=== PATIENT | female | born 1970 | race Caucasian/White ===

== ENCOUNTER 2021-05-30 13:44 | Emergency (ER) | payer OTHER ==
[~2021-05-30] VITALS: Ht 167 cm; Wt 92.6 kg
--- NOTE | 2021-05-30 14:11 | ED Integumentary General ---
General Chief Complaint: Laceration Stated Complaint: LEFT LOWER ADB INJ Nursing Triage Note: PT FELL ONTO A TWIG AND IT PUNCTURED THE RIGHT SIDE OF HER ABDOMEN. BLEEDING CONTROLLED. History of Present Illness Date Seen by Provider: May 30, 2021 Time Seen by Provider: 14:00 Initial Comments 51-year-old female presents after falling off a ladder and into a joseph and getting a steak stuck in her lower abdomen. States she went to take a shower and tried to pull it out and the stick broke off. She still feels a large piece stuck in her lower abdomen. No significant bleeding. Allergies and Home Medications Home Medications Clindamycin HCl 300 Mg Capsule, 300 MG PO TIDWM Prescribed by: FARZANA LOPEZ on 05/30/211512 Oxycodone HCl 5 Mg Capsule, 5 MG PO BID PRN Prescribed by: FARZANA LOPEZ on 05/30/211512 Patient Home Medication List Home Medication List Reviewed: Yes Review of Systems Review of Systems Constitutional: No fever, No malaise, No weakness Respiratory: No cough, No short of breath Cardiovascular: No chest pain, No palpitations Gastrointestinal: LLQ, abdominal pain; No nausea, No vomiting Musculoskeletal: No back pain, No joint pain Skin: see HPI Past Wfrddwx-Mgiwah-Lpqygd Hx Patient Social History Tobacco Use?: No Use of E-Cig and/or Vaping dev: No Substance use?: No Alcohol Use?: No Pt feels they are or have been: No Physical Exam Vital Signs Vital Signs - First Documented 05/30/21 13:50 Temp 36.5 Pulse 120 Resp 20 B/P (MAP) 184/97 (126) Pulse Ox 98 O2 Delivery Room Air Capillary Refill : Less Than 3 Seconds General Appearance: WD/WN, no apparent distress Cardiovascular: regular rate, rhythm, no edema Respiratory: chest non-tender, lungs clear Gastrointestinal: soft, tenderness (@ sight of penetration w palpable small FB, immediately adjacent to wound. Do not feel "deeper" FB, that patient states she feels.) Progress/Results/Core Measures Results/Orders My Orders Orders - FARZANA LOPEZ DO Abdomen (Kub) 1 View (05/30/21 14:06) Ct Abdomen/Pelvis Wo (05/30/21 14:28) Vital Signs/I&O 05/30/21 05/30/21 13:50 15:17 Temp 36.5 36.5 Pulse 120 120 Resp 20 20 B/P (MAP) 184/97 (126) 184/97 (126) Pulse Ox 98 98 O2 Delivery Room Air Blood Pressure Mean: 126 Progress Progress Note : Progress Note Patient examined with no palpable foreign body in or near her puncture wound, CT scan supportive there was no foreign body, but identifiable tract of the wound with subcutaneous air was easily visualized. Patient was discharged, prescriptions written with plans to follow-up with her PCP in a few days for wound check. Nurse was giving discharge instructions, patient said there was definitely something in her wound (although she was not as insistent with me, just minutes prior). The nurse states that the patient then stood up from the bed, turned her back and lean forward, then after a moment she turned around and said see, feel it. At that time the nurse placed a gloved hand over the puncture wound and felt a blunt subcutaneous object. She attempted to remove the forceps, but was unable. I was called back in the room and advised if they were that suspicious, there will need to be explored. The wound was anesthetized with lidocaine, sterilized with Betadine and the puncture wound was opened from 1 cm to 2 cm to allow blunt probing with hemostats. I was able to grasp the foreign body and remove it, revealing a piece of a snake approximately 3 cm long and 5 to 8 mm in diameter. After it was removed, patient said she thought it was more, I deeply palpated along the lines of the penetration (vis ualized on CT) and did not feel any other objects to palpation. Called radiology to discuss the negative findings on CT and the likelihood of missing an object of the size and he opposed the possibility as that was a rather large stick to be missed by a CT scan that takes 2.5 mm sections. ER- Tech also relates her concern of the alleged stick that the patient brought into the ER with her as it had been dropped in the waiting room while pt was being brought back and the Tech (Yuli) said she clearly recalled the end of the stick had a fork shape w near equal length branches. Stick seen later (after all events) and one of the forks that was now missing from the stick, matched the one removed from her wound. Highly suspicious that patient placed the stick in her wound after given her DC instructions Departure Impression Primary Impression: Puncture wound of abdominal wall Qualified Codes: S31.139A - Puncture wound of abdominal wall without foreign body, unspecified quadrant without penetration into peritoneal cavity, initial encounter Disposition: 01 HOME, SELF-CARE Condition: Stable Departure-Patient Inst. Decision time for Depature: 15:11 Referrals: NO,LOCAL PHYSICIAN (PCP/Family) Primary Care Physician Patient Instructions: Wound Care (DC) Add. Discharge Instructions: Follow up with your PCP in 3 days for wound Re-examination, sooner if any worsening signs such as" increased redness, swelling, discharge or pain All discharge instructions reviewed with patient and/or family. Voiced understanding. Scripts Oxycodone HCl (Oxycodone HCl) 5 Mg Capsule 5 MG PO BID PRN for 3 Days, #6 CAP Prov: FARZANA LOPEZ DO 05/30/21 Clindamycin HCl (Clindamycin HCl) 300 Mg Capsule 300 MG PO TIDWM, #21 CAP Prov: FARZANA LOPEZ DO 05/30/21 FARZANA LOPEZ DO May 30, 2021 14:11
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
--- OUTSIDE RECORDS SUMMARY | 2021-05-30 14:17 | XMS REPORT | Clinical Summary ---
Author Author [facility] Organization [facility] Address Unknown Phone Unavailable Care Team Providers Care Knitted Goods Shaper Name Role Phone PCP Unavailable Allergies Not on File Medications Not on file Active Problems Problem Noted Date Foot pain 02/21/2010 Allergic rhinitis 02/10/2010 Overview: Formatting of this note might be differ ent from the original. ICD-10 conversion Insomnia 01/06/2010 Overview: Formatting of this note might be differ ent from the original. ICD-10 conversion Joint pain, knee 01/06/2010 Neck pain 01/06/2010 Incisional hernia 11/02/2009 Overview: Formatting of this note might be differ ent from the original. ICD-10 conversion Malaise and fatigue 10/28/2009 Overview: Formatting of this note might be differ ent from the original. IMO Update Nausea with vomiting 04/07/2008 Muscle Cramps 04/07/2008 Chronic Pain Syndrome 04/07/2008 Migraine with aura 04/07/2008 Overview: Formatting of this note might be differ ent from the original. ICD-10 conversion (Lower) Leg Localized Swelling Bilateral 04/07/2008 Esophageal Reflux 04/07/2008 Recurrent major depression 04/07/2008 Overview: Formatting of this note might be differ ent from the original. IMO Update Neutropenia 04/07/2008 Overview: Formatting of this note might be differ ent from the original. ICD-10 conversion Exploratory Laparotomy 04/07/2008 Overview: Formatting of this note might be differ ent from the original. Problem: Exploratory Laparotomy Phlebitis and thrombophlebitis of other sites 2007 Overview: Formatting of this note might be differ ent from the original. 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 ICD-10 conversion Postsurgical Status Of Intestinal Bypass 04/07/2008 Overview: Formatting of this note might be differ ent from the original. Problem: POSTSURGICAL STATUS INTESTINAL BYPASS Pruritic disorder 04/07/2008 Overview: Formatting of this note might be differ ent from the original. ICD-10 conversion Anxiety state 04/07/2008 Overview: Formatting of this note might be differ ent from the original. ICD-10 conversion Chronic Diarrhea Of Unknown Origin 04/07/2008 Family History Medical History Relation Name Comments Cervical cancer Other Family History; Cer vical Cancer; Coronary artery disease Other Family History ; Coronary Artery Disease; Diabetes Other Family History; Preethi betes Mellitus Poorly Controlled; Hyperlipidemia Other Family History; Hyp erlipidemia; Hypertension Other Family History; Ess ential Hypertension; Stroke Other Family History; Str jewel Syndrome; Relation Name Status Comments Other Social History Date Tobacco Use Types Packs/Day Years Used Never Assessed Sex Assigned at Date Recorded Not on file Last Filed Vital Signs Reading Time Taken Comments Vital Sign 120/80 02/21/2010 11:23 AM CDT Blood Pressure 70 02/21/2010 11:23 AM CDT Pulse 36.7 C (98.1 F) 01/06/2010 10:19 AM CDT Temperature 24 11/02/2009 11:22 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 Respiratory Rate - - Oxygen Saturation - - Inhaled Oxygen Concentration 107 kg (236 lb) 02/21/2010 11:23 AM CDT Weight 165.1 cm (5' 5") 02/21/2010 11:23 AM CDT Height 39.27 02/21/2010 11:23 AM CDT Body Mass Index Plan of Treatment Health Maintenance Due Date Last Done Comments Td/Tdap# 1970 Cervical Cancer Screening 02/24/1993 via Pap Smear Influenza Vaccine (#1) 2021 Pneumococcal Vaccine: Aged Out No longer eligib maura based on patient's age to Pediatrics (0 to 5 Years) complete this topic and At-Risk Patients (6 to 64 Years) Results Not on filefrom Last 3 Months Insurance Type Payer Benefit Subscriber ID Effective Phone Address Plan / Dates Group MEDICARE REPLACEMENT PLAN [facility] [id number] 2018-P MEDICARE resent COMPLETE [place]AR MEDICAID ([place]) [place] [id number] 2019 [employer] -Present Ivan Mccann Personal/F Self [address] [place] (Home) [address] [place] [id number]
--- NOTE | 2021-05-30 14:29 | Diagnostic Imaging Report ---
INDICATION: Left lower quadrant abdominal pain, puncture wound COMPARISON: None. FINDINGS: Single AP and lateral view of the abdomen demonstrates mild constipation. There is no obstruction or large pocket of free air. IVC filter is present. There is no unexpected radiopaque foreign body. Osseous structures are normal IMPRESSION: Constipation without bowel obstruction, free air or unexpected foreign body. Dictated by: Dictated on workstation # [id number]
--- NOTE | 2021-05-30 15:00 | Diagnostic Imaging Report ---
PROCEDURE: CT abdomen and pelvis without contrast. TECHNIQUE: Multiple contiguous axial images were obtained through the abdomen and pelvis without the use of intravenous contrast. Auto Exposure Controls were utilized during the CT exam to meet ALARA standards for radiation dose reduction. INDICATION: Left lower quadrant abdominal pain. Patient reports she fell on a stick. The study is performed to evaluate for foreign body. COMPARISON: No prior studies are available for comparison. FINDINGS: Lung bases are clear. The liver is unremarkable. The gallbladder is surgically absent. There is no biliary ductal dilatation. The pancreas and spleen are unremarkable. There are postop changes from gastric bypass surgery. No adrenal mass is identified. Right kidney is unremarkable. Left kidney contains a nonobstructing calculus, approximately 5 mm in size. Aorta is nonaneurysmal. There is a filter within the inferior vena cava. There is an air tract identified in the subcutaneous tissues of the left lower quadrant from patient's recent penetrating injury. There is inflammation in the tissues, but no definite radiopaque foreign object is identified. The penetrating injury did not appear to extend intraperitoneal. No fluid collection or hematoma is identified. Bowel loops are normal in caliber. There is no obstruction. No free fluid or fluid collection is seen. Bladder and uterus are unremarkable. IMPRESSION: 1. There is an air tract in the subcutaneous fat of the left lower quadrant from recent penetrating injury. There is some surrounding inflammatory stranding in the subcutaneous fat as well. No definite radiopaque foreign object is identified. There is no evidence of intraperitoneal extension. 2. Nonobstructing left renal calculus. Dictated by: Dictated on workstation # [id number]
[2021-05-30] MEDS ORDERED: OXYC5CAP18 PO (15:13)
[2021-05-30] MEDS ORDERED: CLIN300C12 PO (15:13)
[2021-05-30 15:17] VITALS: BP 184/97
== END 2021-05-30 15:18 | disposition home or self-care (01) ==
LOC: ER FS 13:46
DX: S31.144A Puncture wound of abdominal wall with foreign body, left lower quadrant without penetration into peritoneal cavity, initial encounter (principal); W11.XXXA Fall on and from ladder, initial encounter
CPT/HCPCS: 74018; 74176

== ENCOUNTER 2022-08-04 20:20 | Day surgery (SDC) | payer OTHER ==
[~2022-08-04] VITALS: Ht 167 cm; Wt 87.4 kg
[~2022-08-04 20:20] MED LIST: CLIN-144 PO; OXYC5CAP18 PO
--- NOTE | 2022-08-04 20:25 | ED Fall/Injury ---
General Stated Complaint: ABD WOUND History of Present Illness Date Seen by Provider: Aug 04, 2022 Time Seen by Provider: 20:25 Initial Comments 52-year-old female with PMH of recurrent PE ( 7 times) is on Eliquis/ multiple past abdominal surgeries, is here with c/o impaled fishing fernie into her abdomen, after she fell 6 feet off the ladder and landed on the patient. The fishing fernie extends into the LUQ of the abdomen. Pt is in pain but walked into the ER. Denies LOC, nausea, vomiting. Pt is on Eliquis. Pt stated she tried to pull the fernie out at home and was only able to pull out 4 inches of the fernie which broke off. No active external bleeding. Vitals stable in ER, Allergies and Home Medications Allergies Coded Allergies: acetaminophen (Verified Allergy, Unknown, 08/04/22) codeine (Verified Allergy, Unknown, 08/04/22) egg (Verified Allergy, Unknown, 08/04/22) levofloxacin (Verified Allergy, Unknown, 08/04/22) prochlorperazine (Verified Allergy, Unknown, 08/04/22) tramadol (Verified Allergy, Unknown, 08/04/22) Patient Home Medication List Home Medication List Reviewed: Yes Clindamycin HCl (Clindamycin HCl) 300 Mg Capsule, 300 MG PO TIDWM Prescribed by: FARZANA LOPEZ on 05/30/21 151 Oxycodone HCl (Oxycodone HCl) 5 Mg Capsule, 5 MG PO BID PRN Prescribed by: FARZANA LOPEZ on 05/30/21 151 Review of Systems Review of Systems Constitutional: no symptoms reported Eyes: No Symptoms Reported Ears, Nose, Mouth, Throat: no symptoms reported Respiratory: no symptoms reported Cardiovascular: no symptoms reported Gastrointestinal: abdominal pain Genitourinary: no symptoms reported Musculoskeletal: no symptoms reported Skin: no symptoms reported Psychiatric/Neurological: No Symptoms Reported Physical Exam Vital Signs Vital Signs - First Documented Capillary Refill : Height, Weight, BMI Height: '" Weight: lbs. oz. kg; 33.00 BMI Method: General Appearance: moderate distress HEENT: PERRL/EOMI, other (laceration scalp) Neck: normal inspection, tender midline Cardiovascular: normal peripheral pulses, regular rate, rhythm Respiratory: lungs clear, no respiratory distress Gastrointestinal: normal bowel sounds, tenderness (left sided impaled fishing fernie which is estimated to be about 7 inches long is directed toward LUQ, and embedded. No external bleeding. 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, no motor/sensory deficits, alert, oriented x 3 Skin: normal color Lymphatic: no adenopathy Progress/Results/Core Measures Results/Orders Lab Results Laboratory Tests Test 08/04/22 20:33 Range/Units White Blood Count 5.4 4.3-11.0 10^3/uL Red Blood Count 4.25 3.80-5.11 10^6/uL Hemoglobin 11.0 L 11.5-16.0 g/dL Hematocrit 36 35-52 % Mean Corpuscular Volume 84 80-99 fL Mean Corpuscular Hemoglobin 26 25-34 pg Mean Corpuscular Hemoglobin Concent 31 L 32-36 g/dL Red Cell Distribution Width 17.4 H 10.0-14.5 % Platelet Count 258 130-400 10^3/uL Mean Platelet Volume 9.9 9.0-12.2 fL Immature Granulocyte % (Auto) 0 % Neutrophils (%) (Auto) 47 42-75 % Lymphocytes (%) (Auto) 41 12-44 % Monocytes (%) (Auto) 8 0-12 % Eosinophils (%) (Auto) 3 0-10 % Basophils (%) (Auto) 1 0-10 % Neutrophils # (Auto) 2.5 1.8-7.8 10^3/uL Lymphocytes # (Auto) 2.2 1.0-4.0 10^3/uL Monocytes # (Auto) 0.5 0.0-1.0 10^3/uL Eosinophils # (Auto) 0.2 0.0-0.3 10^3/uL Basophils # (Auto) 0.0 0.0-0.1 10^3/uL Immature Granulocyte # (Auto) 0.0 0.0-0.1 10^3/uL Prothrombin Time 13.3 12.2-14.7 SEC INR Comment 1.0 0.8-1.4 Activated Partial Thromboplast Time 28 24-35 SEC Sodium Level 138 135-145 MMOL/L Potassium Level 3.7 3.6-5.0 MMOL/L Chloride Level 101 98-107 MMOL/L Carbon Dioxide Level 25 21-32 MMOL/L Anion Gap 12 5-14 MMOL/L Blood Urea Nitrogen 12 7-18 MG/DL Creatinine 0.94 0.60-1.30 MG/DL Estimat Glomerular Filtration Rate 74 BUN/Creatinine Ratio 13 Glucose Level 103 70-105 MG/DL Calcium Level 9.2 8.5-10.1 MG/DL Corrected Calcium 9.0 8.5-10.1 MG/DL Total Bilirubin 0.3 0.1-1.0 MG/DL Aspartate Amino Transf (AST/SGOT) 37 H 5-34 U/L Alanine Aminotransferase (ALT/SGPT) 24 0-55 U/L Alkaline Phosphatase 129 40-136 U/L Total Protein 7.7 6.4-8.2 GM/DL Albumin 4.3 3.2-4.5 GM/DL My Orders Orders - HEATHER JACKSON MD Cbc With Automated Diff (08/04/22 20:29) Comprehensive Metabolic Panel (08/04/22 20:29) Drug Screen Stat (Urine) (08/04/22 20:29) Protime With Inr (08/04/22 20:29) Partial Thromboplastin Time (08/04/22 20:29) Ua Culture If Indicated (08/04/22 20:29) Ct Head/Cervical Spine Wo (08/04/22 20:35) Ct Chest/Abdomen/Pelvis W (08/04/22 20:35) Fentanyl Inj (Sublimaze Injection) (08/04/22 20:45) Ed Iv/Invasive Line Start (08/04/22 20:41) Ns Iv 1000 Ml (Sodium Chloride 0.9%) (08/04/22 20:45) Ceftriaxone 1 Gm Pre-Mix (Rocephin 1 Gm (08/04/22 20:42) Iohexol Injection (Omnipaque 350 Mg/Ml 1 (08/04/22 20:45) Received Contrast (Hold Metformin- Contr (08/04/22 20:45) Sodium Chloride Flush (Catheter Flush Sy (08/04/22 20:45) Ns (Ivpb) (Sodium Chloride 0.9% Ivpb Bag (08/04/22 20:45) Hydromorphone Injection (Dilaudid Inject (08/04/22 21:01) Hydromorphone Injection (Dilaudid Inject (08/04/22 21:02) Medications Given in ED Current Medications Medications Dose Ordered Sig/Rola Route Start Time Stop Time Status Last Admin Dose Admin Fentanyl Citrate 50 mcg ONCE ONCE IVP 08/04/22 20:45 08/04/22 20:46 DC 08/04/22 21:08 50 MCG Iohexol 100 ml ONCE ONCE IV 08/04/22 20:45 08/04/22 20:46 DC 08/04/22 21:20 100 ML Sodium Chloride 100 ml ONCE ONCE IV 08/04/22 20:45 08/04/22 20:46 DC 08/04/22 21:21 100 ML Vital Signs/I&O 08/04/22 08/04/22 08/04/22 21:00 21:00 21:30 Temp 36.7 36.7 36.7 Pulse 106 106 106 Resp 22 B/P (MAP) 131/105 (114) 131/105 (114) 135/87 Pulse Ox 98 99 99 O2 Delivery Room Air Room Air Room Air Progress Progress Note : Progress Note 1. IMPALED FISHING FERNIE IN ABDOMEN: - CT ABD & PELVIS WITH CONTRAST: - CBC/ CMP - Coag panel - Pt is on Eliquis for recurrent PE - Discussed with Dr Dent. WIll send to [place] as soon as imaging completed. - EMS waiting in ER to transport pt as soon as imaging done - Fentanyl 50mcg iv STAT - NS IVF bolus STAT - Ceftriaxone 1gm iv STAT - Emergent transport by EMS. 2. FALL FROM 6 FEET HEIGHT: - CT HEAD & C-SPINE WITHOUT CONTRAST - C-collar applied in ER - Pt is up to date on Tdap in February of this year Diagnostic Imaging Diagonstic Imaging: CT Plain Films/CT/US/NM/MRI: chest, abdomen, c-spine, head Comments [facility], [facility]. [place], [place] NAME: FLOR WANG Vitaly MED REC#: [id number] PT STATUS: REG ER : 1970 PHYSICIAN: HEATHER JACKSON MD ADMIT DATE: 08/04/22/ER FS Draft Date of Exam:08/04/22 CT CHEST/ABDOMEN/PELVIS W PROCEDURE: CT chest, abdomen, and pelvis with contrast. TECHNIQUE: Multiple contiguous axial images were obtained through the chest, abdomen, and pelvis after the administration of intravenous contrast. Auto Exposure Controls were utilized during the CT exam to meet ALARA standards for radiation dose reduction. INDICATION: Fall. Impaled with a fishing fernie. Injury. Pain. COMPARISON: 05/30/2021. FINDINGS: CT CHEST: Cardiomediastinal structures show normal heart size. There is no large pericardial effusion. No pathologically enlarged or morphologically abnormal adenopathy is seen within the mediastinum, geetha or axilla. Lungs are clear. There is no focal consolidation, large effusion or pneumothorax. No suspicious pulmonary nodule or mass is seen. Osseous structures show no acute abnormality. No lytic or blastic bony lesion is seen. CT ABDOMEN: Tubular foreign body is identified extending through the subcutaneous fat of the left upper abdominal quadrant. There is no extension through the abdominal wall into the intraperitoneal cavity. No large fluid collection is seen around the foreign body. Large amount of air and stool is noted within the colon. Colon is also moderately redundant in nature. Normal appendix cannot be adequately identified, but there is no pericecal inflammation. Small bowel loops are nondistended. Postsurgical changes to the stomach are noted. Punctate nonobstructive left renal calculus is seen. Small hypoenhancing spherical foci of the right kidney are noted and may be on the basis of small cysts, but are too small to adequately characterize based on this exam. Otherwise, kidneys, adrenal glands, spleen, pancreas and liver have a normal CT appearance. There is no loculated fluid collection, free fluid or free air within the abdomen. No abnormal mesenteric or retroperitoneal adenopathy is seen. Osseous structures show no acute abnormality. Indwelling IVC filter is noted. CT PELVIS: Urinary bladder is unopacified. No calculus is seen within the urinary bladder. There is no loculated fluid collection, free fluid or free air within the pelvis. No abnormal adenopathy is seen. Osseous structures show no acute abnormality. IMPRESSION: 1. Large tubular foreign body is seen within the anterior subcutaneous fat of the left upper abdominal quadrant. There is no intra-abdominal extension. No large hematoma is seen. 2. Moderate amount of air and stool within the colon. Please correlate for constipation. 3. No acute cardiopulmonary process. 4. Punctate nonobstructive left renal calculus. 5. Other nonemergent findings as detailed above. Dictated on workstation # [id number] Dict: 08/04/222126 Trans: 08/04/222139 PJE [id number] Interpreted by: ROBB EVANS MD Electronically signed by: [facility]ITAL[facility]. [place], [place] NAME: FLOR WANG [facility] REC#: [id number] PT STATUS: REG ER : 1970 PHYSICIAN: HEATHER JACKSON MD ADMIT DATE: 08/04/22/ER FS Draft Date of Exam:08/04/22 CT HEAD/CERVICAL SPINE WO PROCEDURE: CT head and CT cervical spine without contrast. TECHNIQUE: Multiple contiguous axial images were obtained through the brain and cervical spine without the use of intravenous contrast. Sagittal and coronal reformations through the cervical spine were then performed. Auto Exposure Controls were utilized during the CT exam to meet ALARA standards for radiation dose reduction. INDICATION: Fall with trauma to the head. Injury. COMPARISON: None. FINDINGS: CT HEAD: Ventricles and cortical sulci are normal in size and contour. There is no midline shift or mass-effect. No acute intra-axial hemorrhage is seen. There ise no abnormal area of increased or decreased density to suggest acute hemorrhage or edema. No extra-axial mass or collection is present. The bony calvarium is intact. The visualized paranasal sinuses are unremarkable. The mastoid air cells are clear. CT CERVICAL SPINE: Static alignment of the cervical spine is maintained. There is no significant anterolisthesis or retrolisthesis There is no evidence of jumped facets. Vertebral body heights are maintained. There is no acute fracture. No bony fragment is seen within the spinal canal. Prevertebral and paravertebral soft tissue structures are unremarkable. Included portions of the lung apices are clear. IMPRESSION: 1. No acute intracranial abnormality. No CT evidence of mass, acute infarct or intracranial hemorrhage. 2. No acute fracture or dislocation of the cervical spine. Dictated on workstation # [id number] Dict: 08/04/222121 Trans: 08/04/222131 PJE [id number] Interpreted by: ROBB EVANS MD Electronically signed by: Departure Communication (Admissions) Time/Spoke to Consulting Phy: 20:[address] Dent, will transport immediately after imaging to [place] to [place] Impression Primary Impression: Penetrating abdominal trauma Qualified Codes: S31.109A - Unspecified open wound of abdominal wall, unspecified quadrant without penetration into peritoneal cavity, initial encounter Disposition: 30 STILL A PATIENT Condition: Critical Admissions Decision to Admit Reason: Admit from ER (General) Decision to Admit/Date: Aug 04, 2022 Time/Decision to Admit Time: 20:30 Transfer Transfer Facility: [facility] Method of Transfer: EMS Departure-Patient Inst. Referrals: NO,LOCAL PHYSICIAN (PCP/Family) Primary Care Physician HEATHER JACKSON MD Aug 04, 2022 20:25
[2022-08-04 20:37] LABS: BASOPHILS % (AUTO) 1 % (0-10); EOSINOPHILS # (AUTO) 0.2 10^3/uL (0.0-0.3); EOSINOPHILS % (AUTO) 3 % (0-10); HEMATOCRIT 36 % (35-52); LYMPHOCYTES # (AUTO) 2.2 10^3/uL (1.0-4.0); LYMPHOCYTES % (AUTO) 41 % (12-44); MEAN CORPUSCULAR HEMOGLOBIN 26 pg (25-34); MEAN CORPUSCULAR HGB CONC 31 g/dL (32-36); MEAN CORPUSCULAR VOLUME 84 fL (80-99); MEAN PLATELET VOLUME 9.9 fL (9.0-12.2); MONOCYTES # (AUTO) 0.5 10^3/uL (0.0-1.0); MONOCYTES % (AUTO) 8 % (0-12); NEUTROPHILS # (AUTO) 2.5 10^3/uL (1.8-7.8); NEUTROPHILS % (AUTO) 47 % (42-75); PLATELET COUNT 258 10^3/uL (130-400); WHITE BLOOD COUNT 5.4 10^3/uL (4.3-11.0)
[2022-08-04] MEDS ORDERED: cefTRIAXone 1 GM PRE-MIX 50 ML IV STA (20:42)
[2022-08-04] MEDS ORDERED: NS 100 ML (IVPB) BAG IV ONE (20:45)
[2022-08-04] MEDS ORDERED: CATHETER FLUSH 10 ML SYR IV PRN (20:45)
[2022-08-04] MEDS ORDERED: IOHEXOL 350 MG/ML 100 ML (OMNIPAQUE 350) VIAL IV ONE (20:45)
[2022-08-04] MEDS ORDERED: NS IV 1000 ML 1,000 ML IV SCH (20:45)
[2022-08-04] MEDS ORDERED: HOLD METFORMIN - RECEIVED CONTRAST 20 ML VIAL IV SCH (20:45)
[2022-08-04] MEDS ORDERED: TETANUS,DIPTH,PERTUSS P/F (BOOSTRIX) 0.5 ML VIAL IM ONE (20:45)
[2022-08-04] MEDS ORDERED: fentaNYL INJ 100 MCG/2 ML AMP IVP ONE (20:45)
[2022-08-04 20:52] LABS: PROTHROMBIN TIME PATIENT 13.3 SEC (12.2-14.7)
[2022-08-04 20:57] LABS: ALBUMIN 4.3 GM/DL (3.2-4.5); BILIRUBIN,TOTAL 0.3 MG/DL (0.1-1.0); CALCIUM 9.2 MG/DL (8.5-10.1); CREATININE SERUM 0.94 MG/DL (0.60-1.30); POTASSIUM 3.7 MMOL/L (3.6-5.0); TOTAL PROTEIN 7.7 GM/DL (6.4-8.2)
[2022-08-04] MEDS ORDERED: HYDROmorphone 2 MG/ML VIAL (DILAUDID) IV STA (21:01)
[2022-08-04] MEDS ORDERED: HYDROmorphone 2 MG/ML VIAL (DILAUDID) ONE (21:02)
[2022-08-04] MEDS ORDERED: fentaNYL INJ 100 MCG/2 ML AMP ONE (21:31)
[2022-08-04] MEDS ORDERED: MIDAZOLAM 2 MG/2 ML (VERSED) VIAL ONE (21:31)
--- NOTE | 2022-08-04 21:33 | Diagnostic Imaging Report ---
PROCEDURE: CT head and CT cervical spine without contrast. TECHNIQUE: Multiple contiguous axial images were obtained through the brain and cervical spine without the use of intravenous contrast. Sagittal and coronal reformations through the cervical spine were then performed. Auto Exposure Controls were utilized during the CT exam to meet ALARA standards for radiation dose reduction. INDICATION: Fall with trauma to the head. Injury. COMPARISON: None. FINDINGS: CT HEAD: Ventricles and cortical sulci are normal in size and contour. There is no midline shift or mass-effect. No acute intra-axial hemorrhage is seen. There ise no abnormal area of increased or decreased density to suggest acute hemorrhage or edema. No extra-axial mass or collection is present. The bony calvarium is intact. The visualized paranasal sinuses are unremarkable. The mastoid air cells are clear. CT CERVICAL SPINE: Static alignment of the cervical spine is maintained. There is no significant anterolisthesis or retrolisthesis There is no evidence of jumped facets. Vertebral body heights are maintained. There is no acute fracture. No bony fragment is seen within the spinal canal. Prevertebral and paravertebral soft tissue structures are unremarkable. Included portions of the lung apices are clear. IMPRESSION: 1. No acute intracranial abnormality. No CT evidence of mass, acute infarct or intracranial hemorrhage. 2. No acute fracture or dislocation of the cervical spine. Dictated by: Dictated on workstation # [id number]
--- NOTE | 2022-08-04 21:41 | Diagnostic Imaging Report ---
PROCEDURE: CT chest, abdomen, and pelvis with contrast. TECHNIQUE: Multiple contiguous axial images were obtained through the chest, abdomen, and pelvis after the administration of intravenous contrast. Auto Exposure Controls were utilized during the CT exam to meet ALARA standards for radiation dose reduction. INDICATION: Fall. Impaled with a fishing stephanie. Injury. Pain. COMPARISON: 05/30/2021. FINDINGS: CT CHEST: Cardiomediastinal structures show normal heart size. There is no large pericardial effusion. No pathologically enlarged or morphologically abnormal adenopathy is seen within the mediastinum, geetha or axilla. Lungs are clear. There is no focal consolidation, large effusion or pneumothorax. No suspicious pulmonary nodule or mass is seen. Osseous structures show no acute abnormality. No lytic or blastic bony lesion is seen. CT ABDOMEN: Tubular foreign body is identified extending through the subcutaneous fat of the left upper abdominal quadrant. There is no extension through the abdominal wall into the intraperitoneal cavity. No large fluid collection is seen around the foreign body. Large amount of air and stool is noted within the colon. Colon is also moderately redundant in nature. Normal appendix cannot be adequately identified, but there is no pericecal inflammation. Small bowel loops are nondistended. Postsurgical changes to the stomach are noted. Punctate nonobstructive left renal calculus is seen. Small hypoenhancing spherical foci of the right kidney are noted and may be on the basis of small cysts, but are too small to adequately characterize based on this exam. Otherwise, kidneys, adrenal glands, spleen, pancreas and liver have a normal CT appearance. There is no loculated fluid collection, free fluid or free air within the abdomen. No abnormal mesenteric or retroperitoneal adenopathy is seen. Osseous structures show no acute abnormality. Indwelling IVC filter is noted. CT PELVIS: Urinary bladder is unopacified. No calculus is seen within the urinary bladder. There is no loculated fluid collection, free fluid or free air within the pelvis. No abnormal adenopathy is seen. Osseous structures show no acute abnormality. IMPRESSION: 1. Large tubular foreign body is seen within the anterior subcutaneous fat of the left upper abdominal quadrant. There is no intra-abdominal extension. No large hematoma is seen. 2. Moderate amount of air and stool within the colon. Please correlate for constipation. 3. No acute cardiopulmonary process. 4. Punctate nonobstructive left renal calculus. 5. Other nonemergent findings as detailed above. Dictated by: Dictated on workstation # [id number]
--- NOTE | 2022-08-04 22:25 | Consultation - Surgery ---
History of Present Illness History of Present Illness Patient Consulted On(geronimo/time) 08/04/22 22:16 Time Seen by Provider: 21:57 History of Present Illness Surgery consulted regarding pt impaled on fishing pole. HPI per ED: 52-year-old female with PMH of recurrent PE ( 7 times) is on Eliquis/ multiple past abdominal surgeries, is here with c/o impaled fishing stephanie into her abdomen, after she fell 6 feet off the ladder and landed on the patient. The fishing stephanie extends into the LUQ of the abdomen. Pt is in pain but walked into the ER. Denies LOC, nausea, vomiting. Pt is on Eliquis. Pt stated she tried to pull the stephanie out at home and was only able to pull out 4 inches of the stephanie which broke off. No active external bleeding. Vitals stable in ER, When I spoke to the pt in the ER she was having moderate pain. Stated they tried to remove it at home, but were unsuccessful. Only pain meds were making it better. Denied any SOB. Allergies and Home Medications Allergies Coded Allergies: acetaminophen (Verified Allergy, Unknown, 08/04/22) codeine (Verified Allergy, Unknown, 08/04/22) egg (Verified Allergy, Unknown, 08/04/22) levofloxacin (Verified Allergy, Unknown, 08/04/22) prochlorperazine (Verified Allergy, Unknown, 08/04/22) tramadol (Verified Allergy, Unknown, 08/04/22) Patient Home Medication List Home Medication List Reviewed: Yes Clindamycin HCl (Clindamycin HCl) 300 Mg Capsule, 300 MG PO TIDWM Prescribed by: FARZANA LOPEZ on 05/30/21 1513 Oxycodone HCl (Oxycodone HCl) 5 Mg Capsule, 5 MG PO BID PRN Prescribed by: FARZANA LOPEZ on 05/30/21 1513 Past Xjdhguc-Lduzbe-Vksmrk Hx Patient Social History Smoking Status: Unknown if Ever Smoked Alcohol Use?: No Have you traveled recently?: No Surgeries History of Surgeries: Yes (gastric bypass) Surgeries: Joint Replacement, Orthopedic (knee surgery) Respiratory History of Respiratory Disorde: Yes Respiratory Disorders: Pulmonary Embolism (x 7 and has IVC filter) Cardiovascular History of Cardiac Disorders: No Neurological History of Neurological Disord: Yes Neurological Disorders: Neuropathy Genitourinary History of Genitourinary Disor: No Gastrointestinal History of Gastrointestinal Di: Yes Gastrointestinal Disorders: Gastroesophageal Reflux Musculoskeletal History of Musculoskeletal Dis: Yes Musculoskeletal Disorders: Arthritis Endocrine History of Endocrine Disorders: No HEENT Loss of Vision: Denies Hearing Impairment: Denies Cancer History of Cancer: No Family Medical History Significant Family History: Cancer, Diabetes (Mother) Review of Systems-General Constitutional: No chills, No diaphoresis, No fever EENTM: No blurred vision, No mouth swelling, No epistaxis Respiratory: No cough, No dyspnea on exertion Cardiovascular: No chest pain, No edema Gastrointestinal: abdominal pain; No jaundice, No nausea, No vomiting Genitourinary: No dysuria, No frequency Musculoskeletal: back pain, joint pain, joint swelling, muscle stiffness Skin: No change in color, No change in hair/nails Physical Exam-General Problems Physical Exam Vital Signs Vital Signs - First Documented Capillary Refill : Less Than 3 Seconds General Appearance: moderate distress, obese Eyes: Bilateral Eye PERRL, Bilateral Eye EOMI HEENT: pharynx normal; No scleral icterus (R), No scleral icterus (L); other (small laceration in left eyebrow) Neck: supple, tender midline Respiratory: lungs clear, normal breath sounds, no respiratory distress, no accessory muscle use Cardiovascular: no murmur, tachycardia Gastrointestinal: soft, no organomegaly, other (appears to be a fishing pole in her LUQ, large scars on abdomen from previous surgery) Rectal: deferred Extremities: no pedal edema, no calf tenderness, normal capillary refill Neurologic/Psychiatric: alert, oriented x 3 Skin: normal color, warm/dry Lymphatic: no adenopathy (neck, axilla or groin) Data Review Labs Laboratory Tests 08/04/22 20:33: White Blood Count 5.4, Red Blood Count 4.25, Hemoglobin 11.0L, Hematocrit 36, Mean Corpuscular Volume 84, Mean Corpuscular Hemoglobin 26, Mean Corpuscular Hemoglobin Concent 31L, Red Cell Distribution Width 17.4H, Platelet Count 258, Mean Platelet Volume 9.9, Immature Granulocyte % (Auto) 0, Neutrophils (%) (Auto) 47, Lymphocytes (%) (Auto) 41, Monocytes (%) (Auto) 8, Eosinophils (%) (Auto) 3, Basophils (%) (Auto) 1, Neutrophils # (Auto) 2.5, Lymphocytes # (Auto) 2.2, Monocytes # (Auto) 0.5, Eosinophils # (Auto) 0.2, Basophils # (Auto) 0.0, Immature Granulocyte # (Auto) 0.0, Prothrombin Time 13.3, INR Comment 1.0, Activated Partial Thromboplast Time 28, Sodium Level 138, Potassium Level 3.7, Chloride Level 101, Carbon Dioxide Level 25, Anion Gap 12, Blood Urea Nitrogen 12, Creatinine 0.94, Estimat Glomerular Filtration Rate 74, BUN/Creatinine Ratio 13, Glucose Level 103, Calcium Level 9.2, Corrected Calcium 9.0, Total Bilirubin 0.3, Aspartate Amino Transf (AST/SGOT) 37H, Alanine Aminotransferase (ALT/SGPT) 24, Alkaline Phosphatase 129, Total Protein 7.7, Albumin 4.3 Radiology Date of Exam:08/04/22 CT CHEST/ABDOMEN/PELVIS W PROCEDURE: CT chest, abdomen, and pelvis with contrast. TECHNIQUE: Multiple contiguous axial images were obtained through the chest, abdomen, and pelvis after the administration of intravenous contrast. Auto Exposure Controls were utilized during the CT exam to meet ALARA standards for radiation dose reduction. INDICATION: Fall. Impaled with a fishing stephanie. Injury. Pain. COMPARISON: 05/30/2021. FINDINGS: CT CHEST: Cardiomediastinal structures show normal heart size. There is no large pericardial effusion. No pathologically enlarged or morphologically abnormal adenopathy is seen within the mediastinum, geetha or axilla. Lungs are clear. There is no focal consolidation, large effusion or pneumothorax. No suspicious pulmonary nodule or mass is seen. Osseous structures show no acute abnormality. No lytic or blastic bony lesion is seen. CT ABDOMEN: Tubular foreign body is identified extending through the subcutaneous fat of the left upper abdominal quadrant. There is no extension through the abdominal wall into the intraperitoneal cavity. No large fluid collection is seen around the foreign body. Large amount of air and stool is noted within the colon. Colon is also moderately redundant in nature. Normal appendix cannot be adequately identified, but there is no pericecal inflammation. Small bowel loops are nondistended. Postsurgical changes to the stomach are noted. Punctate nonobstructive left renal calculus is seen. Small hypoenhancing spherical foci of the right kidney are noted and may be on the basis of small cysts, but are too small to adequately characterize based on this exam. Otherwise, kidneys, adrenal glands, spleen, pancreas and liver have a normal CT appearance. There is no loculated fluid collection, free fluid or free air within the abdomen. No abnormal mesenteric or retroperitoneal adenopathy is seen. Osseous structures show no acute abnormality. Indwelling IVC filter is noted. CT PELVIS: Urinary bladder is unopacified. No calculus is seen within the urinary bladder. There is no loculated fluid collection, free fluid or free air within the pelvis. No abnormal adenopathy is seen. Osseous structures show no acute abnormality. IMPRESSION: 1. Large tubular foreign body is seen within the anterior subcutaneous fat of the left upper abdominal quadrant. There is no intra-abdominal extension. No large hematoma is seen. 2. Moderate amount of air and stool within the colon. Please correlate for constipation. 3. No acute cardiopulmonary process. 4. Punctate nonobstructive left renal calculus. 5. Other nonemergent findings as detailed above. Dictated on workstation # [id number] Dict: 08/04/[id number] Trans: 08/04/[id number] [facility] [id number] Interpreted by: ROBB EVANS MD Assessment/Plan Assessment/Plan Assessment/Plan Trauma - impaled on fishing pole Retained foreign body HTN Plan is to take pt to OR to remove fishing pole, washout and possible debridement and all other indicated procedures (consent obtained). I discussed the risks and complications with pt; not limited to pain, bleeding, infection and scar. She may bleed a lot because she is on Eliquis, but we have to take the fishing pole out. Will admit her overnight and probably send home in the am. LAWANDA CRISTOBAL DO Aug 04, 2022 22:25
[2022-08-04] MEDS ORDERED: ceFAZolin INJECTION 2,000 MG ONE (22:28)
[2022-08-04] MEDS ORDERED: LACTATED RINGERS 1,000 ML IV PRN (22:45)
[2022-08-04 22:52] VITALS: BP 120/82
[2022-08-04] MEDS ORDERED: ceFAZolin INJECTION 2 MG IV ONE (22:52)
--- NOTE | 2022-08-04 22:55 | Progress Note-Post Operative ---
Post-Operative Progess Note Surgeon (s)/Spanish Literature Professor (s) Surgeon LAWANDA CRISTOBAL DO Spanish Literature Professor: none Pre-Operative Diagnosis Impaled on fishing pole, retained foreign body Post-Operative Diagnosis same Procedure & Operative Findings Date of Procedure 08/04/22 Procedure Performed/Findings Removal of stephanie and washout Anesthesia Type GET Estimated Blood Loss Estimated blood loss (mL): scant Specimens/Packing Specimens Removed foreign body Packin LAWANDA CRISTOBAL DO Aug 04, 2022 22:55
[2022-08-04] MEDS ORDERED: morphine INJ 10 MG/ML 1ML (SYR OR VIAL) ONE (22:59)
[2022-08-04 23:00] VITALS: BP 112/75
[2022-08-04] MEDS ORDERED: MEPERIDINE (DEMEROL) INJ 50 MG/ML IVP ONE (23:00)
[2022-08-04] MEDS ORDERED: ceFAZolin INJECTION 2,000 MG in NS (IVPB) 50 ML IV SCH (23:00)
[2022-08-04] MEDS ORDERED: ONDANSETRON 4 MG/2 ML (SDV) Z0FRAN IVP PRN ×2 (23:00)
[2022-08-04] MEDS ORDERED: oxyCODONE/APAP 10/325MG (PERCOCET 10) TABLET PO PRN (23:00)
[2022-08-04] MEDS ORDERED: morphine INJ 10 MG/ML 1ML (SYR OR VIAL) IVP ONE (23:00)
[2022-08-04] MEDS ORDERED: ENOXAPARIN 40 MG/0.4 ML (LOVENOX) SYR SC SCH (23:00)
[2022-08-04] MEDS ORDERED: HYDROmorphone 2 MG/ML VIAL (DILAUDID) IV ONE (23:00)
[2022-08-04] MEDS: LACTATED RINGERS 1,000 ML IV SCH (23:02)
[2022-08-04 23:10] VITALS: BP 106/73
[2022-08-04] MEDS ORDERED: SUCCINYLCHOLINE INJ 100 MG/5 ML SYR/VIAL ONE (23:11)
[2022-08-04] MEDS ORDERED: LIDOCAINE PF 2% 5 ML (XYLOCAINE) VIAL ONE (23:11)
[2022-08-04] MEDS ORDERED: ONDANSETRON 4 MG/2 ML (SDV) Z0FRAN ONE (23:11)
[2022-08-04] MEDS ORDERED: proPOfol 200 MG/20 ML (DIPRIVAN) VIAL IV ONE (23:11)
[2022-08-04] MEDS ORDERED: SEVOFLURANE (ULTANE) 15 ML INHAL SOLN ONE (23:11)
[2022-08-04 23:20] VITALS: BP 108/73
[2022-08-04 23:30] VITALS: BP 110/76
[2022-08-04 23:40] VITALS: BP 112/75
--- NOTE | 2022-08-04 23:56 | OPERATIVE REPORT ---
DATE OF SERVICE: 08/04/2022 PREOPERATIVE DIAGNOSES: 1. The patient impaled on fishing pole. 2. Retained foreign body. POSTOPERATIVE DIAGNOSES: 1. The patient impaled on fishing pole. 2. Retained foreign body. PROCEDURE: Removal of stephanie/foreign body and washout. SURGEON: Jose Dent DO WILDLIFE CONSERVATION OFFICER: None. ANESTHESIA: General endotracheal tube. SPECIMEN: Foreign body. BLOOD LOSS: Scant. FLUIDS: Per anesthesia. POSTOPERATIVE CONDITION: Stable. INDICATION FOR PROCEDURE: The patient is a 52-year-old female, who was helping a friend to clean out an attic, slipped off the ladder and impaled herself on what she called a fishing pole that was in the trash can. They tried to remove it at home and it broke off, so she came to the emergency room. I did a CT, which showed that the stephanie was not into the abdominal cavity, had missed and went along the ribs and fascia. Did not appear to have any eyelets on it. Did an x-ray, which also did not show any eyelets and she was taken to the OR. FINDINGS: The patient had a foreign body removed and washed out. PROCEDURE NOTE: After informed consent was obtained, the patient was brought to the operating room. She was sterilely prepped and draped in normal fashion. There was a stephanie sticking out of the abdomen in the left upper quadrant gently pulled on this and then actually pulled out very nicely, did not appear to be any eyelets on this, I am not sure if this was a fishing stephanie or if it was a bottom part and what had been jammed into her abdomen was a blunt tip possibly the section that goes into the other portion of the stephanie. Again, no eyelet seen. This came out very easily. There is basically no bleeding. Elected to then copiously irrigate this with a Pulsavac cutter first. Then, the fluid came out on its own. Elected to just leave this open at this point, since the foreign body was removed. Area was cleaned and dried. Light Band-Aid dressing was placed and the patient was then transferred to recovery room in stable condition. Sponge, instrument and needle count correct at the end of the case. Job ID: [id number] DocumentID: [id number] Dictated Date: 08/04/2022 22:55:25 Block Operator Date: 08/04/2022 23:55:53 Dictated By: JOSE DENT DO MTDJudy
[2022-08-05] MEDS: LACTATED RINGERS 1,000 ML IV SCH (03:10)
[2022-08-05 03:49] VITALS: BP 101/67
[2022-08-05] MEDS: ceFAZolin INJECTION 2,000 MG in NS (IVPB) 50 ML IV SCH ×2 (05:36→14:36)
[2022-08-05 08:00] VITALS: BP 124/67
[2022-08-05] MEDS: PANTOPRAZOLE 40 MG (PROTONIX) VIAL IVP SCH (08:47)
--- NOTE | 2022-08-05 11:05 | Progress Note - Surgery ---
NATHALY URBINA 08/05/22 1105: Subjective Date Seen by a Provider: Aug 05, 2022 Time Seen by a Provider: 11:00 Subjective/Events-last exam Patient is POD #1 after having fishing pole removed from her left lower abdomen. She reports 8/10 pain over the incision site and through the left side of her abdomen. She wants more pain meds than what she is currently receiving. She states the pain meds she takes at home for her chronic abdominal pain issues are much stronger. She states she has been slowly advancing her diet without nausea or vomiting. She also states she has been able to get up and go to the bathroom twice today. She would like to go home if possible. Review of Systems General: No Chills, No Night Sweats Pulmonary: No Dyspnea, No Cough Cardiovascular: No: Chest Pain, Palpitations Gastrointestinal: Abdominal Pain; No: Nausea, Vomiting Objective Exam Vital Signs Date Time Temp Pulse Resp B/P (MAP) Pulse Ox O2 Delivery O2 Flow Rate FiO2 08/05/22 08:00 36.6 73 14 124/67 (86) Room Air 08/05/22 03:49 36.4 89 16 101/67 (78) 96 Room Air 08/05/22 01:14 98 0.00 21 08/05/22 01:04 Nasal Cannula 2.00 08/04/22 23:40 36.6 18 112/75 (87) 95 OxyMask 2.00 08/04/22 23:40 OxyMask 2.00 08/04/22 23:30 18 110/76 (87) 95 OxyMask 2.00 08/04/22 23:29 OxyMask 2.00 08/04/22 23:25 Room Air 08/04/22 23:21 Room Air 08/04/22 23:20 18 108/73 (85) 97 OxyMask 2.00 08/04/22 23:18 OxyMask 2.00 08/04/22 23:14 OxyMask 4.00 08/04/22 23:12 OxyMask 4.00 08/04/22 23:10 18 106/73 (84) 97 OxyMask 6.00 08/04/22 23:00 18 112/75 (87) 98 OxyMask 6.00 08/04/22 23:00 OxyMask 6.00 08/04/22 22:52 OxyMask 6.00 08/04/22 22:52 36.4 12 120/82 (95) 97 OxyMask 6.00 08/04/22 21:30 36.7 106 22 135/87 99 Room Air 08/04/22 21:00 36.7 106 22 131/105 (114) 99 Room Air 08/04/22 21:00 36.7 106 22 131/105 (114) 98 Room Air I & O 08/05/22 07:00 Intake Total 1532 ml Output Total 1500 ml Balance 32 ml Capillary Refill : Less Than 3 Seconds General Appearance: No Apparent Distress, WD/WN HEENT: Moist Mucous Membranes; No Scleral Icterus (L), No Scleral Icterus (R) Neck: Non Tender, Supple Respiratory: Chest Non Tender, Lungs Clear, Normal Breath Sounds, No Accessory Muscle Use, No Respiratory Distress Cardiovascular: Regular Rate, Rhythm, No Edema, No Murmur Gastrointestinal: normal bowel sounds, soft, no organomegaly, tenderness (LUQ, LLQ ), other (incision with dressing in the left lower abdomen appears to be c/d/i, large scars on abdomen from previous surgery) Extremity: Non Tender, No Calf Tenderness, No Pedal Edema Neurologic/Psychiatric: Alert, Oriented x3, Normal Mood/Affect Skin: Normal Color, Warm/Dry Lymphatic: No Adenopathy (cervical) Results Lab Laboratory Tests 08/04/22 20:33: White Blood Count 5.4, Red Blood Count 4.25, Hemoglobin 11.0L, Hematocrit 36, Mean Corpuscular Volume 84, Mean Corpuscular Hemoglobin 26, Mean Corpuscular Hemoglobin Concent 31L, Red Cell Distribution Width 17.4H, Platelet Count 258, Mean Platelet Volume 9.9, Immature Granulocyte % (Auto) 0, Neutrophils (%) (Auto) 47, Lymphocytes (%) (Auto) 41, Monocytes (%) (Auto) 8, Eosinophils (%) (Auto) 3, Basophils (%) (Auto) 1, Neutrophils # (Auto) 2.5, Lymphocytes # (Auto) 2.2, Monocytes # (Auto) 0.5, Eosinophils # (Auto) 0.2, Basophils # (Auto) 0.0, Immature Granulocyte # (Auto) 0.0, Prothrombin Time 13.3, INR Comment 1.0, Activated Partial Thromboplast Time 28, Sodium Level 138, Potassium Level 3.7, Chloride Level 101, Carbon Dioxide Level 25, Anion Gap 12, Blood Urea Nitrogen 12, Creatinine 0.94, Estimat Glomerular Filtration Rate 74, BUN/Creatinine Ratio 13, Glucose Level 103, Calcium Level 9.2, Corrected Calcium 9.0, Total Bilirubin 0.3, Aspartate Amino Transf (AST/SGOT) 37H, Alanine Aminotransferase (ALT/SGPT) 24, Alkaline Phosphatase 129, Total Protein 7.7, Albumin 4.3 Assessment/Plan Assessment/Plan Assessment/Plan POD 1 - s/p removal of foreign body (impaled by fishing pole in the left abdomen) HTN Plan is to send the patient home today with pain meds for pain control. JOSE DENT DO 08/05/22 1435: Subjective Time Seen by a Provider: 13:25 Subjective/Events-last exam Pt seen and examined, states she feels ok and wants to go home. Tolerating diet, but pain is not controlled; she takes more pain meds at home than she is getting now. Review of Systems General: No Chills, No Night Sweats Pulmonary: No Dyspnea, No Cough Cardiovascular: No: Chest Pain, Palpitations Gastrointestinal: Abdominal Pain; No: Nausea, Vomiting Objective Exam General Appearance: No Apparent Distress, Obese HEENT: Moist Mucous Membranes; No Scleral Icterus (L), No Scleral Icterus (R) Respiratory: Lungs Clear, Normal Breath Sounds, No Accessory Muscle Use, No Respiratory Distress Cardiovascular: Regular Rate, Rhythm, No Murmur Gastrointestinal: soft, no organomegaly, tenderness (LUQ, LLQ ), other (incision with dressing in the left lower abdomen appears to be c/d/i, large scars on abdomen from previous surgery) Assessment/Plan Assessment/Plan Assessment/Plan POD 1 - s/p removal of foreign body (impaled by fishing pole in the left abdomen) HTN Plan is to send the patient home today with pain meds for pain control. I would send pt home today, but she has no one to come get her and taxi's are not running today. Will get her a taxi voucher tomorrow. Supervisory-Addendum Brief Verification & Attestation Participated in pt care: history, MDM, physical Personally performed: exam, history, MDM, supervision of care Care discussed with: Medical Student Procedures: n/a Verification and Attestation of Medical Student E/M Service A medical student performed and documented this service. I then reviewed and verified all information documented by the medical student and made modifications to such information, when appropriate. I personally performed a physical exam, medical decision making and then discussed any differences between the notes and made revisions as necessary to create one note. Jose Dent , 08/05/22 , 14:36 NATHALY URBINA Aug 05, 2022 11:05 JOSE DENT DO Aug 05, 2022 14:35
[2022-08-05 12:00] VITALS: BP 123/73
[2022-08-05 13:00] VITALS: BP 126/68
[2022-08-05] MEDS ORDERED: PARO12.521 PO (14:40)
[2022-08-05] MEDS ORDERED: ONDA8TAB13 SL (14:47)
[2022-08-05] MEDS ORDERED: APIX2.5T PO (14:47)
[2022-08-05] MEDS ORDERED: TRZ50T PO (14:47)
[2022-08-05] MEDS ORDERED: AMIT100T2 PO (14:47)
[2022-08-05] MEDS ORDERED: FEN12TD TD (14:47)
[2022-08-05] MEDS ORDERED: ESOM40CA52 PO (14:47)
[2022-08-05] MEDS ORDERED: GABA800T10 PO (14:47)
[2022-08-05] MEDS ORDERED: BUSP15TA60 PO (14:47)
[2022-08-05] MEDS ORDERED: PARO25TA21 PO (14:47)
[2022-08-05 15:34] VITALS: BP 109/76
[2022-08-05 19:14] VITALS: BP 122/79
[2022-08-06 00:06] VITALS: BP 141/88
[2022-08-06 04:03] VITALS: BP 129/87
--- NOTE | 2022-08-06 07:09 | Anesthesia-General Post-Op ---
General Patient Condition Mental Status/LOC: Same as Preop Cardiovascular: Satisfactory Nausea/Vomiting: Absent Respiratory: Satisfactory Pain: Controlled Complications: Absent Post Op Complications Complications None Follow Up Care/Instructions Patient Instructions None needed. Anesthesia/Patient Condition Patient Condition Patient is doing well, no complaints, stable vital signs, no apparent adverse anesthesia problems. No complications reported per nursing. [place] home [place] [facility] [place]: Yes QUAN HERNANDEZ CRNA Aug 06, 2022 07:08
[2022-08-06] MEDS: PANTOPRAZOLE 40 MG (PROTONIX) VIAL IVP SCH (08:26)
[2022-08-06 08:28] VITALS: BP 124/74
[2022-08-06] MEDS ORDERED: CEPH500T PO (08:30)
--- NOTE | 2022-08-06 08:31 | Discharge Inst-Surgical ---
Discharge Inst-Surgical Depart Medication/Instructions New, Converted or Re-Newed RX: Transmitted to Pharmacy Patient Instructions Follow up Appt: Make appointment with your primary care. Can come see me if needed, Instructions: No lifting greater than 20 pounds. No strenuous activity. May shower in 24 hours, no tub bath or soaking. Use incentive spirometer at home as directed. No Smoking Skin/Wound Care: May remove bandages in am. You need to keep area clean and dry. Symptoms to Report: Appetite Changes, Extremity Discoloration, Numbness/Tingling, Swelling Increased, Bleeding Excessive, Eyesight Changes, Pain Increased, Urine Color Change, Constipation(Persistent), Fever over 101 degree F, Pain/Pressure in chest, Urinating Difficulty, Cough Up/Vomit Blood, Heart Beat Irreg/Pounding, Pain/Pressure in jaw, Cramps in feet or legs, Lightheadedness, Pain/Pressure in shoulder, Diarrhea(Persistent), Memory Changes Suddenly, Questions/Concerns, Weight gain consecutive days, Dizziness/Fainting, Nausea/Vomiting, Shortness of Breath, Weight gain over 2 pounds If questions or concerns contact your physician Or seek help at emergency department. Activity Activity as Tolerated: Yes Driving Instructions: You May Drive Diet Discharge Diet: No Restrictions Diet After 24 Hours: Clear Liquid if Nauseous If Any Problems/Questions/Issu: Contact Your Physician, Go to Emergency Room Skin/Wound Care Infection Signs and Symptoms: Increased Redness, Foul Odor of Wound, Increased Drainage, Skin Itchy or Has a Rash, Increased Swelling, Temperature Above 101 F Bathing Instructions: LAWANDA Larson DO Aug 06, 2022 08:31
[2022-08-06 09:08] VITALS: BP 124/74
--- NOTE | 2022-08-06 14:19 | Diagnostic Imaging Report ---
INDICATION: Foreign body COMPARISON: CT from same date TECHNIQUE: 2 radiographs of the abdomen dated 08/04/2022. FINDINGS: Surgical clips are noted overlying the left upper abdomen as well as the right upper abdomen. Inferior vena cava filter is present. 26 cm tubular density is identified overlying the left abdomen, corresponding to recent CT examination. Gas and stool throughout the bowel. No abnormally dilated loops of bowel. No free air. No acute osseous abnormality IMPRESSION: A 26 cm tubular density overlying the left abdomen extending to overlie the left abdominal wall is felt to relate to the foreign body noted on recent CT examination. This is better demonstrated on the recent CT examination. Additional postsurgical and chronic findings, as above. Dictated by: Dictated on workstation # [id number]
== END 2022-08-06 10:20 | disposition home or self-care (01) ==
LOC: EDUNIT# 20:20 → ER FS 20:23 → SDC 22:03 → 4TH 22:03 → UNDOADMOB 22:52 → 4TH 22:52 → UNDODISOB 08-06 10:20 → SDC 08-06 10:20
PROVIDERS: ATTEND Surgery
DX: S31.12 Laceration with foreign body of abdominal wall without penetration into peritoneal cavity (principal); I10 Essential (primary) hypertension; W01.118A Fall on same level from slipping, tripping and stumbling with subsequent striking against other sharp object, initial encounter; Y93.H3 Activity, building and construction
CPT/HCPCS: 36415; 70450; 71260; 72125; 74018; 74177; 80053; 85025; 85610; 85730; 94664; 96374; 96375